=== PATIENT | female | born 1985 ===

== ENCOUNTER 2017-09-12 06:14 | Inpatient (IN) ==
[2017-09-12] MEDS ORDERED: CITRIC ACID/SODIUM CITRATE 30 ML UDCUP PO ONE (06:38)
[2017-09-12] MEDS ORDERED: ceFAZolin 2,000 MG in PREMIX 1 EACH IV ONE (06:38)
[2017-09-12] MEDS ORDERED: PROMETHAZINE 25 MG/1 ML VIAL IM PRN (06:44)
[2017-09-12] MEDS ORDERED: ONDANSETRON 4 MG/2 ML VIAL IV PRN ×3 (06:44→13:13)
[2017-09-12] MEDS ORDERED: LACTATED RINGERS 1,000 ML IV ONE (06:44)
[2017-09-12] MEDS ORDERED: FAMOTIDINE 20 MG/2 ML VIAL IV ONE (06:44)
[2017-09-12] MEDS ORDERED: OXYTOCIN/LR 20 UNIT/1,000 ML BAG IV ONE ×2 (06:44→09:14)
[2017-09-12] MEDS ORDERED: hydrOXYzine HCL 25 MG/1 ML VIAL IM PRN ×2 (06:44→13:13)
[2017-09-12] MEDS: LACTATED RINGERS 1,000 ML IV SCH ×4 (06:49→19:22)
[2017-09-12 07:06] LABS: Basophils % 0.1 % (0.0-0.8); Eosinophils # 0.1 10*3/uL (0.0-0.87); Eosinophils % 1.2 % (0.00-10.9); Hematocrit 34.5 VOL% (35.7-47.0); Hemoglobin 11.4 GM/DL (12.0-16.0); Immature Granulocytes % 0.6 %; Immature Granulocytes Absolute 0.05 #; Lymphocytes % 25.9 % (21.3-54.2); Mean Corpuscular Hemoglobin 28 PG (27-34); Mean Corpuscular Volume 84.1 FL (87-102); Mean Platelet Volume 11.5 FL (9.6-12.0); Monocytes # 0.5 10*3/uL (0.11-0.8); Monocytes % 5.8 % (1.7-12.7); Neutrophils # 5.2 10*3/uL (1.4-7.4); Neutrophils % 66.4 % (38.7-73.9); Platelet Count 178 T/CUMM (130-400); Red Cell Distribution Width 14.2 % (9.3-17.3); White Blood Count 7.8 T/CUMM (4-12)
[2017-09-12 07:44] LABS: Alanine Aminotransferase 18 U/L (13-56); Albumin 2.4 G/DL (3.4-5.0); Alkaline Phosphatase 289 U/L (45-117); Aspartate Amino Transferase 19 U/L (0-37); Bilirubin,Total < 0.39 MG/DL (0.2-1.0); Blood Urea Nitrogen 7 MG/DL (7-18); Calcium 8.3 MG/DL (8.5-10.1); Glucose 64 MG/DL (74-106); Osmolality,Calculated 272.5 MOS/KG (273-304); Potassium 3.9 MMOL/L (3.5-5.1); Sodium 139 MMOL/L (136-145); Total Protein 6.9 G/DL (6.4-8.3)
[2017-09-12] MEDS ORDERED: BUPIVACAINE SPINAL 0.75% 2 ML AMP SPINAL ONE (08:17)
[2017-09-12 08:31] LABS: Amorphous Crystals,Urine Occasional /HPF (Few); Apearance,Urine CLEAR (Clear); Bacteria,Urine Occasional /HPF (Few); Bilirubin,Urine Negative (Negative); Blood, Urine Negative (Negative); Glucose,Urine (UA) Negative (Negative); Hyaline Casts,Urine 1 /LPF (0-3); Ketones,Urine Negative (Negative); Mucus,Urine Occasional /LPF (Occasional); Nitrite,Urine Negative (Negative); Protein,Urine Negative; RBC,Urine <1 /HPF (0-4); Squamous Epithelial Cell,Urine Occasional /HPF (0-10); Urine Color Yellow (Yellow); Urine Specific Gravity 1.015 (1.001-1.035); WBC,Urine <1 /HPF (0-6)
[2017-09-12] MEDS ORDERED: ACETAMINOPHEN 325 MG TABLET PO PRN (09:14)
[2017-09-12] MEDS ORDERED: MORPHINE 10 MG/10 ML VIAL ONE (09:36)
[2017-09-12] MEDS ORDERED: RHO(D) IMMUNE GLOBULIN 300 MCG SYRINGE IM ONE (10:00)
[2017-09-12] MEDS: diphenhydrAMINE 50 MG/1 ML VIAL IV PRN ×2 (11:29→14:49)
[2017-09-12] MEDS ORDERED: KETOROLAC 30 MG/1 ML VIAL IV PRN (11:45)
[2017-09-12] MEDS ORDERED: MORPHINE 10 MG/1 ML VIAL IV PRN (12:00)
[2017-09-12] MEDS ORDERED: HYDROmorphone 2 MG/1 ML VIAL IV PRN (13:13)
[2017-09-12] MEDS ORDERED: diphenhydrAMINE 50 MG/1 ML VIAL IV PRN (13:13)
[2017-09-12] MEDS ORDERED: SODIUM CHLORIDE 0.9% 1,000 ML IV SCH (13:30)
[2017-09-12] MEDS ORDERED: LACTATED RINGERS 1,000 ML IV SCH (13:30)
[2017-09-12] MEDS ORDERED: MIDAZOLAM 2 MG/2 ML VIAL ONE (13:43)
[2017-09-12] MEDS ORDERED: PHENYLEPHRINE 1 MG/10 ML SYRINGE IV ONE (13:43)
[2017-09-12] MEDS: ceFAZolin 1,000 MG in SYRINGE 1 EACH IV SCH ×2 (18:26→23:57)
[2017-09-12] MEDS: DOCUSATE SODIUM 100 MG CAPSULE PO SCH (22:21)
[2017-09-12 22:48] LABS: Basophils % 0.2 % (0.0-0.8); Eosinophils % 0.5 % (0.00-10.9); Hematocrit 29.6 VOL% (35.7-47.0); Hemoglobin 9.8 GM/DL (12.0-16.0); Immature Granulocytes % 0.5 %; Immature Granulocytes Absolute 0.03 #; Lymphocytes # 1.1 10*3/uL (1.4-4.0); Lymphocytes % 16.6 % (21.3-54.2); Mean Corpuscular HGB Conc 33.1 GM/DL (32-36); Mean Corpuscular Hemoglobin 28 PG (27-34); Mean Corpuscular Volume 83.4 FL (87-102); Mean Platelet Volume 11.6 FL (9.6-12.0); Monocytes # 0.4 10*3/uL (0.11-0.8); Monocytes % 6.7 % (1.7-12.7); Neutrophils # 4.8 10*3/uL (1.4-7.4); Neutrophils % 75.5 % (38.7-73.9); Platelet Count 147 T/CUMM (130-400); Red Blood Count 3.55 MC/CUMM (3.8-5.5); Red Cell Distribution Width 14.2 % (9.3-17.3); White Blood Count 6.4 T/CUMM (4-12)
[2017-09-13] MEDS: IBUPROFEN 800 MG TABLET PO PRN (03:31)
[2017-09-13] MEDS: LACTATED RINGERS 1,000 ML IV SCH ×2 (03:32→03:33)
[2017-09-13 07:47] LABS: Basophils % 0.1 % (0.0-0.8); Eosinophils # 0.1 10*3/uL (0.0-0.87); Eosinophils % 0.7 % (0.00-10.9); Hematocrit 28.2 VOL% (35.7-47.0); Hemoglobin 9.6 GM/DL (12.0-16.0); Immature Granulocytes % 0.5 %; Immature Granulocytes Absolute 0.04 #; Lymphocytes # 1.6 10*3/uL (1.4-4.0); Lymphocytes % 18.7 % (21.3-54.2); Mean Corpuscular Hemoglobin 28 PG (27-34); Mean Corpuscular Volume 82.5 FL (87-102); Mean Platelet Volume 11.4 FL (9.6-12.0); Monocytes # 0.5 10*3/uL (0.11-0.8); Monocytes % 5.4 % (1.7-12.7); Neutrophils # 6.3 10*3/uL (1.4-7.4); Neutrophils % 74.6 % (38.7-73.9); Platelet Count 166 T/CUMM (130-400); Red Blood Count 3.42 MC/CUMM (3.8-5.5); Red Cell Distribution Width 14.4 % (9.3-17.3); White Blood Count 8.5 T/CUMM (4-12)
[2017-09-13] MEDS ORDERED: diphenhydrAMINE CAP 25 MG CAPSULE PO PRN (08:14)
[2017-09-13] MEDS: DOCUSATE SODIUM 100 MG CAPSULE PO SCH ×2 (08:24→20:13)
[2017-09-13] MEDS: SIMETHICONE CHEW 80 MG TABLET PO PRN (08:25)
[2017-09-13] MEDS: oxyCODONE/ACETAMINOPHEN 5-325 MG TABLET PO PRN (18:06)
[2017-09-13] MEDS: MAGNESIUM HYDROXIDE SUSP 30 ML UDCUP PO PRN (20:13)
[2017-09-14] MEDS: oxyCODONE/ACETAMINOPHEN 5-325 MG TABLET PO PRN (06:45)
[2017-09-14] MEDS: SIMETHICONE CHEW 80 MG TABLET PO PRN ×2 (09:06→22:20)
[2017-09-14] MEDS: DOCUSATE SODIUM 100 MG CAPSULE PO SCH ×2 (09:06→22:20)
[2017-09-14] MEDS: MAGNESIUM HYDROXIDE SUSP 30 ML UDCUP PO PRN ×2 (09:06→22:20)
[2017-09-14] MEDS: MULTIVITAMIN (PRENATAL) TABLET PO SCH (09:08)
[2017-09-14] MEDS: IBUPROFEN 800 MG TABLET PO PRN (12:59)
[2017-09-15] MEDS: IBUPROFEN 800 MG TABLET PO PRN ×2 (00:17→09:02)
[2017-09-15 07:38] VITALS: BP 94/54
[2017-09-15] MEDS: DOCUSATE SODIUM 100 MG CAPSULE PO SCH (08:58)
[2017-09-15] MEDS: MAGNESIUM HYDROXIDE SUSP 30 ML UDCUP PO PRN (08:58)
[2017-09-15] MEDS: SIMETHICONE CHEW 80 MG TABLET PO PRN (08:58)
[2017-09-15] MEDS: MULTIVITAMIN (PRENATAL) TABLET PO SCH ×2 (08:58→12:21)
[2017-09-15] MEDS ORDERED: MEASLES/MUMPS/RUBELLA VACCINE 0.5 ML VIAL SUBCUT ONE (11:54)
== END 2017-09-15 22:00 | disposition home or self-care (01) | DRG 540 ==
LOC: N.LDOUT 06:14 → N.LD 06:19 → N.OB 14:40
PROVIDERS: ADMIT Obstetrics & Gynecology; ATTEND Obstetrics & Gynecology
PROC: LDCSECT (ICD-10-PCS; 2017-09-12 07:30)

== ENCOUNTER 2019-01-19 09:30 | Inpatient (IN) ==
[2019-01-19] MEDS ORDERED: CITRIC ACID/SODIUM CITRATE 30 ML UDCUP PO ONE (13:09)
[2019-01-19] MEDS ORDERED: FAMOTIDINE 20 MG/2 ML VIAL IV ONE (13:09)
[2019-01-19] MEDS ORDERED: ceFAZolin 3,000 MG in SYRINGE 1 EACH IV ONE (13:09)
[2019-01-19] MEDS ORDERED: OXYTOCIN 10 UNIT/ML VIAL IM ONE (13:16)
[2019-01-19] MEDS ORDERED: OXYTOCIN/LR 30 UNIT/1,000 ML BAG IV ONE (13:16)
[2019-01-19 13:27] LABS: Eosinophils # 0.1 10*3/uL (0.0-0.87); Eosinophils % 1.2 % (0.00-10.9); Hematocrit 34.3 VOL% (35.7-47.0); Hemoglobin 11.5 GM/DL (12.0-16.0); Immature Granulocytes % 0.8 %; Immature Granulocytes Absolute 0.04 #; Lymphocytes # 1.4 10*3/uL (1.4-4.0); Lymphocytes % 26.2 % (21.3-54.2); Mean Corpuscular HGB Conc 33.5 GM/DL (32-36); Mean Corpuscular Volume 88.2 FL (87-102); Mean Platelet Volume 11.2 FL (9.6-12.0); Neutrophils % 66.8 % (38.7-73.9); Platelet Count 147 T/CUMM (130-400); Red Blood Count 3.89 MC/CUMM (3.8-5.5); Red Cell Distribution Width 14.6 % (9.3-17.3); White Blood Count 5.2 T/CUMM (4-12)
[2019-01-19] MEDS ORDERED: LACTATED RINGERS 1,000 ML IV ONE (13:34)
[2019-01-19] MEDS ORDERED: SODIUM CHLORIDE 0.9% 100 ML IV ONE (13:40)
[2019-01-19 13:49] LABS: Alanine Aminotransferase 13 U/L (13-56); Albumin 2.5 G/DL (3.4-5.0); Alkaline Phosphatase 198 U/L (45-117); Aspartate Amino Transferase 13 U/L (0-37); Bilirubin,Total < 0.39 MG/DL (0.2-1.0); Blood Urea Nitrogen 7 MG/DL (7-18); Calcium 8.5 MG/DL (8.5-10.1); Estimated Glom Filtration Rate 146 ML/MIN; Glucose 84 MG/DL (74-106); Osmolality,Calculated 275.4 MOS/KG (273-304); Total Protein 6.7 G/DL (6.4-8.3)
[2019-01-19] MEDS ORDERED: LACTATED RINGERS 1,000 ML IV SCH ×2 (14:00→16:30)
[2019-01-19 14:51] LABS: Cord Arterial Blood HCO3 21.8 MMOL/L
[2019-01-19 14:54] LABS: Cord Venous Blood PCO2 39.3 MMHG
[2019-01-19 15:01] LABS: Apearance,Urine CLEAR (Clear); Bilirubin,Urine Negative (Negative); Blood, Urine Negative (Negative); Glucose,Urine (UA) Negative (Negative); Ketones,Urine Negative (Negative); Nitrite,Urine Negative (Negative); Protein,Urine Negative; RBC,Urine <1 /HPF (0-4); Urine Color Straw (Yellow); Urine Specific Gravity 1.005 (1.001-1.035); Urine Urobilinogen < 2.0 EU/DL (0.2-1.0); WBC,Urine <1 /HPF (0-6)
[2019-01-19] MEDS ORDERED: SIMETHICONE CHEW 80 MG TABLET PO PRN (16:24)
[2019-01-19] MEDS ORDERED: OXYTOCIN/LR 20 UNIT/1,000 ML BAG IV ONE (16:24)
[2019-01-19] MEDS ORDERED: ONDANSETRON 4 MG/2 ML VIAL IV PRN (16:24)
[2019-01-19] MEDS ORDERED: RHO(D) IMMUNE GLOBULIN 300 MCG SYRINGE IM ONE (16:24)
[2019-01-19] MEDS ORDERED: ACETAMINOPHEN 325 MG TABLET PO PRN (16:24)
[2019-01-19] MEDS ORDERED: MORPHINE 10 MG/10 ML VIAL ONE (18:33)
[2019-01-19] MEDS ORDERED: ePHEDrine 50 MG/ML AMP ONE (18:33)
[2019-01-19] MEDS ORDERED: BUPIVACAINE SPINAL 0.75% 2 ML AMP SPINAL ONE (18:45)
[2019-01-19] MEDS: DOCUSATE SODIUM 100 MG CAPSULE PO SCH (21:53)
[2019-01-19] MEDS ORDERED: diphenhydrAMINE CAP 25 MG CAPSULE PO PRN (21:54)
[2019-01-19 22:34] LABS: Basophils % 0.1 % (0.0-0.8); Eosinophils % 0.2 % (0.00-10.9); Hematocrit 30.7 VOL% (35.7-47.0); Hemoglobin 10.4 GM/DL (12.0-16.0); Immature Granulocytes % 0.4 %; Immature Granulocytes Absolute 0.03 #; Lymphocytes # 1.2 10*3/uL (1.4-4.0); Lymphocytes % 15.2 % (21.3-54.2); Mean Corpuscular HGB Conc 33.9 GM/DL (32-36); Mean Corpuscular Volume 87.2 FL (87-102); Mean Platelet Volume 11.2 FL (9.6-12.0); Monocytes % 6.1 % (1.7-12.7); Platelet Count 135 T/CUMM (130-400); Red Blood Count 3.52 MC/CUMM (3.8-5.5); Red Cell Distribution Width 14.6 % (9.3-17.3); White Blood Count 8.1 T/CUMM (4-12)
[2019-01-19] MEDS: ceFAZolin 1,000 MG in SYRINGE 1 EACH IV SCH (22:46)
[2019-01-20 05:37] LABS: Basophils % 0.1 % (0.0-0.8); Eosinophils % 0.4 % (0.00-10.9); Hematocrit 30.6 VOL% (35.7-47.0); Hemoglobin 10.3 GM/DL (12.0-16.0); Immature Granulocytes % 0.4 %; Immature Granulocytes Absolute 0.03 #; Lymphocytes # 1.5 10*3/uL (1.4-4.0); Lymphocytes % 21.9 % (21.3-54.2); Mean Corpuscular HGB Conc 33.7 GM/DL (32-36); Mean Corpuscular Volume 87.9 FL (87-102); Mean Platelet Volume 11.7 FL (9.6-12.0); Monocytes % 6.1 % (1.7-12.7); Neutrophils % 71.1 % (38.7-73.9); Platelet Count 138 T/CUMM (130-400); Red Blood Count 3.48 MC/CUMM (3.8-5.5); Red Cell Distribution Width 14.6 % (9.3-17.3)
[2019-01-20] MEDS: ceFAZolin 1,000 MG in SYRINGE 1 EACH IV SCH (06:07)
[2019-01-20] MEDS: IBUPROFEN 800 MG TABLET PO PRN ×2 (06:10→14:36)
[2019-01-20] MEDS ORDERED: MULTIVITAMIN (PRENATAL) TABLET PO SCH (09:00)
[2019-01-20] MEDS: MAGNESIUM HYDROXIDE SUSP 30 ML UDCUP PO PRN ×2 (09:27→21:32)
[2019-01-20] MEDS: DOCUSATE SODIUM 100 MG CAPSULE PO SCH ×2 (09:27→21:32)
[2019-01-20] MEDS ORDERED: oxyCODONE/ACETAMINOPHEN 5-325 MG TABLET PO PRN (14:38)
[2019-01-20] MEDS: METOCLOPRAMIDE 10 MG TABLET PO SCH (15:50)
[2019-01-21] MEDS: METOCLOPRAMIDE 10 MG TABLET PO SCH ×2 (00:22→08:05)
[2019-01-21] MEDS: MAGNESIUM HYDROXIDE SUSP 30 ML UDCUP PO PRN (08:05)
[2019-01-21 10:33] VITALS: BP 123/78
[2019-01-21] MEDS ORDERED: DIPH/TET/ACEL PERT BOOSTER VACCINE 0.5 ML VIAL IM ONE (11:40)
== END 2019-01-21 12:10 | disposition home or self-care (01) | DRG 540 ==
LOC: N.LD 12:56 → N.OB 20:50
PROVIDERS: ADMIT Obstetrics & Gynecology; ATTEND Obstetrics & Gynecology
PROC: LDCSECT (ICD-10-PCS; 2019-01-19 09:45)

== ENCOUNTER 2020-12-23 10:15 | Inpatient (IN) ==
[2020-12-23] MEDS: LACTATED RINGERS 1,000 ML IV SCH ×2 (10:40→15:27)
[2020-12-23] MEDS ORDERED: FAMOTIDINE 20 MG/2 ML VIAL IV ONE (10:49)
[2020-12-23] MEDS ORDERED: CITRIC ACID/SODIUM CITRATE 30 ML UDCUP PO ONE (10:49)
[2020-12-23] MEDS ORDERED: ceFAZolin 3,000 MG in SYRINGE 1 EACH IV ONE ×2 (10:49→11:00)
[2020-12-23] MEDS ORDERED: OXYTOCIN 10 UNIT/ML VIAL IM ONE (10:52)
[2020-12-23] MEDS ORDERED: OXYTOCIN/LR 30 UNIT/1,000 ML BAG IV ONE (10:52)
[2020-12-23 11:07] LABS: Basophils % 0.2 % (0.0-0.8); Eosinophils % 0.6 % (0.00-10.9); Hematocrit 31.8 VOL% (35.7-47.0); Hemoglobin 10.3 GM/DL (12.0-16.0); Immature Granulocytes % 0.6 %; Immature Granulocytes Absolute 0.04 #; Lymphocytes # 1.5 10*3/uL (1.4-4.0); Lymphocytes % 23.9 % (21.3-54.2); Mean Corpuscular HGB Conc 32.4 GM/DL (32-36); Mean Platelet Volume 11.6 FL (9.6-12.0); Monocytes % 5.4 % (1.7-12.7); Neutrophils % 69.3 % (38.7-73.9); Platelet Count 142 T/CUMM (130-400); Red Blood Count 3.88 MC/CUMM (3.8-5.5); Red Cell Distribution Width 13.9 % (9.3-17.3); White Blood Count 6.4 T/CUMM (4-12)
[2020-12-23 11:23] LABS: Alanine Aminotransferase 10 U/L (13-56); Albumin 2.3 G/DL (3.4-5.0); Alkaline Phosphatase 185 U/L (45-117); Aspartate Amino Transferase 13 U/L (0-37); Bilirubin,Total < 0.39 MG/DL (0.20-1.00); Blood Urea Nitrogen 7 MG/DL (7-18); Calcium 8.5 MG/DL (8.5-10.1); Carbon Dioxide 20 MMOL/L (21-32); Estimated Glom Filtration Rate 143 ML/MIN; Glucose 75 MG/DL (74-106); Osmolality,Calculated 273.5 MOS/KG (273-304); Potassium 3.6 MMOL/L (3.5-5.1); Sodium 139 MMOL/L (136-145); Total Protein 6.9 G/DL (6.4-8.2)
[2020-12-23] MEDS ORDERED: miSOPROStoL 200 MCG TABLET ONE (15:38)
[2020-12-23] MEDS ORDERED: METHYLERGONOVINE 0.2 MG/1 ML AMP ONE (15:38)
[2020-12-23] MEDS ORDERED: CARBOPROST TROMETHAMINE 250 MCG/ML AMP IM ONE (15:39)
[2020-12-23] MEDS ORDERED: BUPIVACAINE SPINAL 0.75% 2 ML AMP SPINAL ONE (15:56)
[2020-12-23] MEDS ORDERED: ePHEDrine 50 MG/ML VIAL ONE (16:17)
[2020-12-23] MEDS ORDERED: PHENYLEPHRINE 1 MG/10 ML SYRINGE IV ONE (16:18)
[2020-12-23] MEDS ORDERED: ONDANSETRON 4 MG/2 ML VIAL ONE (16:34)
[2020-12-23] MEDS ORDERED: ACETAMINOPHEN INJ 1,000 MG/100 ML VIAL IV ONE (16:36)
[2020-12-23] MEDS ORDERED: KETOROLAC 30 MG/1 ML VIAL ONE (16:39)
[2020-12-23 16:52] LABS: Bilirubin,Urine Negative (Negative); Blood, Urine Negative (Negative); Glucose,Urine (UA) Negative (Negative); Ketones,Urine 5 mg/dL (Negative); Mucus,Urine Occasional /LPF (Occasional); Nitrite,Urine Negative (Negative); Protein,Urine Negative; Squamous Epithelial Cell,Urine Occasional /HPF (0-10); Urine Appearance CLEAR (Clear); Urine Color Yellow (Yellow); Urine Specific Gravity 1.024 (1.001-1.035)
[2020-12-23 16:52] LABS: Cord Venous Blood HCO3 21.8 MMOL/L; Cord Venous Blood PCO2 44.2 MMHG; Cord Venous Blood PO2 30.2
[2020-12-23] MEDS ORDERED: RHO(D) IMMUNE GLOBULIN 300 MCG SYRINGE IM ONE (18:00)
[2020-12-23] MEDS ORDERED: SIMETHICONE CHEW 80 MG TABLET PO PRN (18:00)
[2020-12-23] MEDS ORDERED: OXYTOCIN/LR 20 UNIT/1,000 ML BAG IV ONE ×2 (18:00→18:01)
[2020-12-23] MEDS ORDERED: LACTATED RINGERS 1,000 ML IV SCH (18:00)
[2020-12-23] MEDS ORDERED: ONDANSETRON 4 MG/2 ML VIAL IV PRN (18:00)
[2020-12-23] MEDS ORDERED: ACETAMINOPHEN 325 MG TABLET PO PRN (18:00)
[2020-12-23] MEDS: DOCUSATE SODIUM 100 MG CAPSULE PO SCH (20:26)
[2020-12-23] MEDS: IBUPROFEN 800 MG TABLET PO PRN (20:26)
[2020-12-23] MEDS ORDERED: KETOROLAC 30 MG/1 ML VIAL IV SCH (23:00)
[2020-12-23] MEDS ORDERED: ACETAMINOPHEN 500 MG TABLET PO SCH (23:00)
[2020-12-24 00:39] LABS: Basophils % 0.2 % (0.0-0.8); Eosinophils % 0.2 % (0.00-10.9); Hematocrit 28.7 VOL% (35.7-47.0); Hemoglobin 9.5 GM/DL (12.0-16.0); Immature Granulocytes % 0.6 %; Immature Granulocytes Absolute 0.05 #; Lymphocytes # 1.3 10*3/uL (1.4-4.0); Mean Corpuscular HGB Conc 33.1 GM/DL (32-36); Mean Platelet Volume 11.5 FL (9.6-12.0); Platelet Count 133 T/CUMM (130-400); Red Cell Distribution Width 13.7 % (9.3-17.3); White Blood Count 8.5 T/CUMM (4-12)
[2020-12-24 06:03] LABS: Basophils % 0.1 % (0.0-0.8); Eosinophils % 0.4 % (0.00-10.9); Hematocrit 28.4 VOL% (35.7-47.0); Hemoglobin 9.6 GM/DL (12.0-16.0); Immature Granulocytes % 0.4 %; Immature Granulocytes Absolute 0.03 #; Lymphocytes # 1.3 10*3/uL (1.4-4.0); Lymphocytes % 17.4 % (21.3-54.2); Mean Corpuscular HGB Conc 33.8 GM/DL (32-36); Mean Corpuscular Volume 81.4 FL (87-102); Mean Platelet Volume 12.1 FL (9.6-12.0); Monocytes % 4.7 % (1.7-12.7); Platelet Count 143 T/CUMM (130-400); Red Blood Count 3.49 MC/CUMM (3.8-5.5); Red Cell Distribution Width 13.6 % (9.3-17.3); White Blood Count 7.5 T/CUMM (4-12)
[2020-12-24] MEDS: MULTIVITAMIN (PRENATAL) TABLET PO SCH (07:54)
[2020-12-24] MEDS: DOCUSATE SODIUM 100 MG CAPSULE PO SCH ×2 (07:54→21:22)
[2020-12-24] MEDS: METOCLOPRAMIDE 10 MG TABLET PO PRN ×2 (07:54→17:46)
[2020-12-24] MEDS: FERROUS SULFATE 325 MG TABLET PO SCH (07:54)
[2020-12-24] MEDS: MAGNESIUM HYDROXIDE SUSP 30 ML UDCUP PO PRN ×2 (12:23→21:22)
[2020-12-25] MEDS: METOCLOPRAMIDE 10 MG TABLET PO PRN (05:45)
[2020-12-25] MEDS ORDERED: MAGNESIUM CITRATE 300 ML BOTTLE PO ONE (07:11)
[2020-12-25 08:24] VITALS: BP 132/68
[2020-12-25] MEDS: FERROUS SULFATE 325 MG TABLET PO SCH ×2 (10:13→10:24)
[2020-12-25] MEDS: MULTIVITAMIN (PRENATAL) TABLET PO SCH ×2 (10:13→10:24)
[2020-12-25] MEDS: DOCUSATE SODIUM 100 MG CAPSULE PO SCH ×2 (10:13→10:24)
[2020-12-25] MEDS: MAGNESIUM HYDROXIDE SUSP 30 ML UDCUP PO PRN (10:47)
[2020-12-25] MEDS: IBUPROFEN 800 MG TABLET PO PRN (11:59)
== END 2020-12-25 12:25 | disposition home or self-care (01) | DRG 539 ==
LOC: N.LDOUT 10:15 → N.LD 10:18 → N.OB 20:58
PROVIDERS: ADMIT Obstetrics & Gynecology; ATTEND Obstetrics & Gynecology

== ENCOUNTER 2021-09-19 08:49 | Inpatient (IN) ==
[2021-09-19] MEDS ORDERED: MORPHINE 2 MG/1 ML SYRINGE IV STA (11:33)
[2021-09-19] MEDS ORDERED: ONDANSETRON 4 MG/2 ML VIAL IV PRN (11:59)
[2021-09-19] MEDS ORDERED: ACETAMINOPHEN 325 MG TABLET PO PRN (11:59)
[2021-09-19] MEDS ORDERED: SODIUM HYPOCHLORITE 0.25% IRRIG 473 ML BOTTLE TOP SCH (13:07)
[2021-09-19] MEDS: LACTATED RINGERS 1,000 ML IV SCH ×2 (13:13→20:01)
[2021-09-19] MEDS: MORPHINE 2 MG/1 ML SYRINGE IV PRN (20:00)
[2021-09-19] MEDS: DOCUSATE SODIUM 100 MG CAPSULE PO SCH (21:15)
[2021-09-20] MEDS: MORPHINE 2 MG/1 ML SYRINGE IV PRN ×5 (03:08→23:59)
[2021-09-20] MEDS: LACTATED RINGERS 1,000 ML IV SCH ×3 (03:17→20:57)
[2021-09-20 05:34] LABS: Basophils % 0.2 % (0.0-0.8); Eosinophils # 0.1 10*3/uL (0.0-0.87); Eosinophils % 1.7 % (0.00-10.9); Hematocrit 29.8 VOL% (35.7-47.0); Hemoglobin 9.3 GM/DL (12.0-16.0); Immature Granulocytes % 0.4 %; Immature Granulocytes Absolute 0.02 #; Lymphocytes # 1.8 10*3/uL (1.4-4.0); Lymphocytes % 33.5 % (21.3-54.2); Mean Corpuscular HGB Conc 31.2 GM/DL (32-36); Mean Corpuscular Volume 77.6 FL (87-102); Mean Platelet Volume 10.4 FL (9.6-12.0); Monocytes # 0.4 10*3/uL (0.11-0.8); Monocytes % 6.6 % (1.7-12.7); Neutrophils % 57.6 % (38.7-73.9); Platelet Count 157 T/CUMM (130-400); Red Blood Count 3.84 MC/CUMM (3.8-5.5); Red Cell Distribution Width 15.6 % (9.3-17.3); White Blood Count 5.3 T/CUMM (4-12)
[2021-09-20 06:01] LABS: Calcium 8.2 MG/DL (8.5-10.1); Osmolality,Calculated 274.5 MOS/KG (273-304); Potassium 3.6 MMOL/L (3.5-5.1)
[2021-09-20] MEDS: PANTOPRAZOLE 40 MG TABLET PO SCH (08:14)
[2021-09-20] MEDS: DOCUSATE SODIUM 100 MG CAPSULE PO SCH ×2 (08:14→20:56)
[2021-09-21] MEDS: MORPHINE 2 MG/1 ML SYRINGE IV PRN ×3 (05:04→20:48)
[2021-09-21] MEDS: LACTATED RINGERS 1,000 ML IV SCH ×3 (05:04→23:54)
[2021-09-21 05:57] LABS: Basophils % 0.2 % (0.0-0.8); Eosinophils # 0.1 10*3/uL (0.0-0.87); Hematocrit 29.8 VOL% (35.7-47.0); Hemoglobin 9.3 GM/DL (12.0-16.0); Immature Granulocytes % 0.6 %; Immature Granulocytes Absolute 0.03 #; Lymphocytes # 1.8 10*3/uL (1.4-4.0); Lymphocytes % 36.9 % (21.3-54.2); Mean Corpuscular HGB Conc 31.2 GM/DL (32-36); Mean Corpuscular Volume 76.8 FL (87-102); Monocytes # 0.3 10*3/uL (0.11-0.8); Monocytes % 6.3 % (1.7-12.7); Platelet Count 174 T/CUMM (130-400); Red Blood Count 3.88 MC/CUMM (3.8-5.5); Red Cell Distribution Width 15.4 % (9.3-17.3); White Blood Count 4.9 T/CUMM (4-12)
[2021-09-21 06:19] LABS: Calcium 7.9 MG/DL (8.5-10.1); Osmolality,Calculated 275.4 MOS/KG (273-304); Potassium 3.7 MMOL/L (3.5-5.1)
[2021-09-21] MEDS: PANTOPRAZOLE 40 MG TABLET PO SCH (10:32)
[2021-09-21] MEDS: DOCUSATE SODIUM 100 MG CAPSULE PO SCH ×2 (10:32→20:25)
[2021-09-21] MEDS: RIVAROXABAN 15 MG TABLET PO SCH (16:45)
[2021-09-22] MEDS: LACTATED RINGERS 1,000 ML IV SCH ×2 (05:26→13:03)
[2021-09-22] MEDS: DOCUSATE SODIUM 100 MG CAPSULE PO SCH (08:50)
[2021-09-22] MEDS: RIVAROXABAN 15 MG TABLET PO SCH (08:51)
[2021-09-22] MEDS: PANTOPRAZOLE 40 MG TABLET PO SCH (08:51)
[2021-09-22 12:15] VITALS: BP 117/50
== END 2021-09-22 12:40 | disposition home or self-care (01) | DRG 392 ==
LOC: EDBD → EDUNIT# → N.ED 08:49 → N.EDINP 08:49 → N.3E 12:24
PROVIDERS: ADMIT Surgery; ATTEND Surgery